=== PATIENT | female | born 1965 | race Caucasian/White ===

== ENCOUNTER → 2021-04-02 | Outpatient (CLI) | payer OTHER | END | disposition home or self-care (01) | LOC: LAB SHORT 12:00 | DX: R10.30 Lower abdominal pain, unspecified (principal) | CPT/HCPCS: 87086 ==

== ENCOUNTER → 2021-04-09 | Outpatient (CLI) | payer OTHER | LOC: LAB SHORT 16:00 | DX: R10.2 Pelvic and perineal pain (principal) | CPT/HCPCS: 87086 ==

== ENCOUNTER → 2022-01-23 | Outpatient (CLI) | payer OTHER | END | disposition home or self-care (01) | LOC: LAB SHORT 14:17 → LAB 14:17 | DX: R82.90 Unspecified abnormal findings in urine (principal) | CPT/HCPCS: 87086; 87147 ==

== ENCOUNTER → 2022-02-12 | Outpatient (CLI) | payer OTHER | END | disposition home or self-care (01) | LOC: LAB 14:10 → LAB SHORT 14:10 | DX: R35.0 Frequency of micturition (principal) | CPT/HCPCS: 87077; 87086; 87186 ==

== ENCOUNTER → 2022-03-25 | Outpatient (CLI) | payer OTHER | LOC: LAB SHORT 11:05 | DX: R82.90 Unspecified abnormal findings in urine (principal) ==

== ENCOUNTER → 2022-04-23 | Outpatient (CLI) | payer OTHER | END | disposition home or self-care (01) | LOC: LAB 11:30 → LAB SHORT 11:30 | DX: N39.0 Urinary tract infection, site not specified (principal) | CPT/HCPCS: 87086 ==

== ENCOUNTER → 2023-02-02 | Outpatient (CLI) | payer OTHER | LOC: LAB SHORT 15:51 → LAB 15:51 | DX: R30.0 Dysuria (principal) | CPT/HCPCS: 87086; 87147 ==

== ENCOUNTER → 2023-03-11 | Outpatient (CLI) | payer OTHER | END | disposition home or self-care (01) | LOC: LAB SHORT 14:15 → LAB 14:15 → LAB SHORT 03-12 16:12 | DX: N39.0 Urinary tract infection, site not specified (principal) | CPT/HCPCS: 87086; 87147 ==

== ENCOUNTER → 2023-04-21 | Outpatient (CLI) | payer OTHER | LOC: LAB SHORT 15:59 → LAB 15:59 | DX: R35.0 Frequency of micturition (principal) | CPT/HCPCS: 87086 ==

== ENCOUNTER → 2023-10-26 | Outpatient (CLI) | payer OTHER | LOC: LAB SHORT 16:02 → LAB 16:02 | DX: N39.0 Urinary tract infection, site not specified (principal) | CPT/HCPCS: 87086 ==

== ENCOUNTER → 2024-07-07 | Outpatient (CLI) | payer OTHER | LOC: LAB 15:21 → LAB SHORT 15:21 | DX: N39.0 Urinary tract infection, site not specified (principal) | CPT/HCPCS: 87086 ==